=== PATIENT | male | born 1975 | race Caucasian/White ===

== ENCOUNTER 2016-05-31 14:58 | Emergency (ER) | payer BC ==
[~2016-05-31] VITALS: Ht 172.7 cm; Wt 74.8 kg
[2016-05-31] MEDS ORDERED: IV SET PRIMARY 1 EA INFUS.SET MC ONE (15:19)
[2016-05-31] MEDS ORDERED: IV NS 0.9% 1,000 ML ONE (15:19)
[2016-05-31] MEDS ORDERED: METOCLOPRAMIDE HCL 10 MG/2 ML VIAL ONE (15:19)
[2016-05-31] MEDS ORDERED: diphenhydrAMINE HCL 50 MG/ML VIAL ONE (15:19)
--- NOTE | 2016-05-31 15:20 | NUR ---
PT BIB FAMILY C/O HEADACHE SUDDEN ONSET THROBBING AND FEVER X3 DAYS. AFEBRILE NOW. SKIN WARM NONDIAPHORETIC. RESP EVEN UNLABORED. REPORTS NAUSEA/VOMITING, DENIES DIARRHEA. NO NEURO DEFICITS NOTED. A/OX4. IN ER BED 11.
[2016-05-31] MEDS ORDERED: IV NS 0.9% 1,000 ML BAG IV ONE (15:30)
[2016-05-31] MEDS ORDERED: METOCLOPRAMIDE HCL 10 MG/2 ML VIAL IV ONE (15:30)
[2016-05-31] MEDS ORDERED: diphenhydrAMINE HCL 50 MG/ML VIAL IV ONE (15:30)
[2016-05-31] MEDS ORDERED: DIAZEPAM 5 MG/ML 2 ML DISP.SYRIN ONE (15:37)
--- NOTE | 2016-05-31 15:40 | NUR ---
PT NOTED TO BE VOMITING; ORDER FOR 5MG IVP VALIUM RECEIVED AND ADMINISTERED
[2016-05-31 15:52] LABS: BASOPHILS # (AUTO) 0.1 /CMM (0.0-0.2); BASOPHILS % (AUTO) 0.4 % (0.0-2.0); EOSINOPHILS # (AUTO) 0.2 /CMM (0.0-0.7); EOSINOPHILS % (AUTO) 1.3 % (0.0-6.0); HEMATOCRIT 46 % (39-51); HEMOGLOBIN 15.3 g/dL (13.5-17.5); LYMPHOCYTES # (AUTO) 1.8 /CMM (0.8-4.8); LYMPHOCYTES % (AUTO) 13.7 % (20.0-44.0); MEAN CORPUSCULAR HEMOGLOBIN 30 PG (26.0-33.0); MEAN CORPUSCULAR HGB CONC 34 g/dl (31.0-36.0); MEAN CORPUSCULAR VOLUME 90 fL (80-96); MONOCYTES # (AUTO) 0.7 /CMM (0.1-1.30); MONOCYTES % (AUTO) 5.6 % (2.0-12.0); NEUTROPHILS # (AUTO) 10.2 /CMM (1.8-8.9); PLATELET COUNT (AUTO) 293 /CMM (150-450); RDW COEFFICIENT OF VARIATION 12.5 (11.5-15.0); RED BLOOD CELL COUNT(AUTO) 5.05 MIL/uL (4.5-6.0); WHITE BLOOD COUNT (AUTO) 12.9 K/uL (4.3-11.0)
[2016-05-31] MEDS ORDERED: DIAZEPAM 5 MG/ML 2 ML DISP.SYRIN IV ONE (16:00)
[2016-05-31 16:09] LABS: INR 0.96 (0.87-1.13); PROTHROMBIN TIME 10.3 SECS (9.5-12.7)
[2016-05-31 16:12] LABS: CALCIUM, SERUM 9.9 mg/dL (8.5-10.1); CREATININE 1.2 mg/dL (0.6-1.3); POTASSIUM 3.3 mmol/L (3.5-5.1)
--- NOTE | 2016-05-31 16:20 | NUR ---
PT REPORTS NO FURTHER NAUSEA OR VOMITING. AWAITING CT.
--- NOTE | 2016-05-31 16:57 | NUR ---
PT STILL C/O THROBBING HEADACHE, HOWEVER D/T POSITIONAL NATURE OF IV ACCESS, ONLY 400CC OF IVF WITH REGLAN AND BENADRYL ADDED HAVE INFUSED AT THIS TIME. EDUCATED PT ON POSITIONING FOR MAX FLOW OF IVF AND IV POLE HEIGHTENED. PILE FAB[employer]IC KNITTER NOTIFIED.
[2016-05-31] MEDS ORDERED: MORPHINE SULFATE INJ 2 MG/ML DISP.SYRIN ONE (17:24)
[2016-05-31] MEDS ORDERED: CT SWABBABLE VALVE TRANS SET 1 EA INFUS.SET MC ONE (17:25)
[2016-05-31] MEDS ORDERED: IOPAMIDOL 15 ML VIAL IT ONE (17:25)
[2016-05-31] MEDS ORDERED: IOHEXOL-350 100 ML VIAL IV ONE (17:26)
[2016-05-31] MEDS ORDERED: MORPHINE SULFATE INJ 2 MG/ML DISP.SYRIN IV ONE ×2 (17:30→19:00)
--- NOTE | 2016-05-31 17:44 | NUR ---
IV ACCESS ESTABLISHED IN RAC 18G FOR CTA. PT AMBULATED TO RESTROOM WITH STEADY GAIT, THEN PT TRANSPORTED TO CT IN STABLE CONDITION VIA WHEELCHAIR
--- NOTE | 2016-05-31 18:32 | NUR ---
PROVIDED WATER FOR PO CHALLENGE
[2016-05-31] MEDS ORDERED: MORPHINE SULFATE INJ 4 MG/ML DISP.SYRIN ONE (18:57)
--- NOTE | 2016-05-31 19:18 | NUR ---
PT SIGNED INFORMED CONSENT FOR LUMBAR PUNCTURE. LP PERFORMED BY RAVINDRA DEVINE NP SUPERVISED BY DR GUERRERO. SAMPLES LABELED, TO BE HAND DELIVERED TO LAB. TOLERATED PROCEDURE WELL. PLACED IN SUPINE POSITION.
[2016-05-31 19:51] LABS: CSF GLUCOSE 61 mg/dL (40-70)
[2016-05-31 19:54] LABS: CSF APPEARANCE CLEAR (CLEAR); CSF COLOR COLORLESS (COLORLESS); CSF VOLUME 3.5 mL
[2016-05-31 20:00] LABS: CSF WHITE BLOOD CELL COUNT 3 /cumm (0-5)
[2016-05-31 20:03] LABS: CSF WHITE BLOOD CELL COUNT 2 /cumm (0-5)
--- NOTE | 2016-05-31 21:20 | NUR ---
Patient discharged to home in stable condition. Written and verbal after care instructions given. Patient verbalizes understanding of instruction. IVs removed. Catheter intact and site benign. Pressure and 4x4 applied to site. No bleeding noted. AMBULATORY WITH STEADY GAIT. NAD NOTED. VSS.
[2016-05-31 22:00] VITALS: BP 135/72
== END 2016-05-31 22:00 | disposition home or self-care (01) ==
LOC: ER 15:05
DX: R51 Headache (principal); F31.9 Bipolar disorder, unspecified
CPT/HCPCS: 36415; 70450; 70496; 80048; 85025; 85730; 89051; 96361; 96374 ×2; 99285; A4606; J1200; J2270 ×2; J2765; J3360; J7030; Q9967; Z7610

== ENCOUNTER 2018-08-11 21:53 | Emergency (ER) | payer BC ==
[~2018-08-11] VITALS: Ht 180.3 cm; Wt 81.6 kg
[2018-08-11 22:41] LABS: BASOPHILS % (AUTO) 0.4 % (0.0-2.0); EOSINOPHILS % (AUTO) 6.1 % (0.0-6.0); HEMATOCRIT 41 % (39-51); HEMOGLOBIN 14.4 g/dL (13.5-17.5); LYMPHOCYTES # (AUTO) 1.9 /CMM (0.8-4.8); MEAN CORPUSCULAR HGB CONC 35 g/dl (31.0-36.0); MEAN CORPUSCULAR VOLUME 91 fL (80-96); MONOCYTES # (AUTO) 0.5 /CMM (0.1-1.30); MONOCYTES % (AUTO) 6.8 % (2.0-12.0); NEUTROPHILS # (AUTO) 4.5 /CMM (1.8-8.9); NEUTROPHILS % (AUTO) 60.7 % (43.0-81.0); PLATELET COUNT (AUTO) 194 /CMM (150-450); RED BLOOD CELL COUNT(AUTO) 4.55 MIL/uL (4.5-6.0); WHITE BLOOD COUNT (AUTO) 7.5 K/uL (4.3-11.0)
[2018-08-11 22:44] LABS: APPEARANCE,URINE Clear (CLEAR); BILIRUBIN,URINE Negative (NEGATIVE); BLOOD, URINE Negative Ery/uL (NEGATIVE); COLOR,URINE Yellow (YELLOW); KETONES,URINE Negative (NEGATIVE); LEUKOCYTE ESTERASE ,URINE Negative (NEGATIVE); NITRITE, URINE Negative (NEGATIVE); PROTEIN,URINE Negative (NEGATIVE); UGLUCOSE Negative (NEGATIVE); UROBILINOGEN,URINE 0.2 EU/dL (0.2)
[2018-08-11 22:49] LABS: CALCIUM, SERUM 9.2 mg/dL (8.5-10.1); CREATININE 0.8 mg/dL (0.6-1.3); POTASSIUM 4.1 mmol/L (3.5-5.1)
[2018-08-11 22:54] LABS: ALBUMIN 3.9 g/dL (3.4-5.0); BILIRUBIN,DIRECT 0.1 mg/dL (0.0-0.2); BILIRUBIN,TOTAL 0.5 mg/dL (0.2-1.0); TOTAL PROTEIN, SERUM 6.9 g/dL (6.4-8.2)
[2018-08-11] MEDS ORDERED: KETOROLAC TROMETHAMINE 15 MG/ML VIAL ONE (23:14)
[2018-08-11] MEDS ORDERED: KETOROLAC TROMETHAMINE INJ 30 MG/ML VIAL ONE (23:30)
[2018-08-11] MEDS ORDERED: KETOROLAC TROMETHAMINE INJ 30 MG/ML VIAL IV ONE (23:30)
[2018-08-11 23:59] VITALS: BP 125/76
[2018-08-12] MEDS ORDERED: KETOROLAC TROMETHAMINE INJ 60 MG/2 ML VIAL IM ONE
== END 2018-08-11 23:59 | disposition home or self-care (01) ==
LOC: ER 21:58
DX: R10.13 Epigastric pain (principal); G89.29 Other chronic pain; R19.7 Diarrhea, unspecified; R04.2 Hemoptysis; F39 Unspecified mood [affective] disorder; F31.9 Bipolar disorder, unspecified; E88.89 Other specified metabolic disorders; E78.5 Hyperlipidemia, unspecified; F12.10 Cannabis abuse, uncomplicated; Z86.19 Personal history of other infectious and parasitic diseases; Z90.49 Acquired absence of other specified parts of digestive tract; Z98.890 Other specified postprocedural states
CPT/HCPCS: 36415; 71045; 80048; 80076; 80305; 80307; 81001; 83690; 85025; 96372; 99284; J1885 ×2; 81000-TC; G0480